=== PATIENT | male | born 1960 | race Caucasian/White ===

== ENCOUNTER → 2020-12-22 12:42 | Outpatient (CLI) | payer SELFPAY ==
[2020-12-25 04:07] LABS: QNTFERON TB Mitogen Value > 10.00 IU/mL (.); QNTFERON TB Nil Value 0.07 IU/mL (.); QNTFERON TB1+ Ag Value 0.06 IU/mL (.); QNTFERON TB2+ Ag Value 0.06 IU/mL (.)
[2020-12-25 13:10] LABS: QNTIFERON TB Positive Criteria Negative (Negative)
== END ==
PROVIDERS: PCP Family Medicine; Referring Provider Dermatology; Visit Provider Dermatology
DX: L40.0 Psoriasis vulgaris (principal); Z79.899 Other long term (current) drug therapy; L82.1 Other seborrheic keratosis
CPT/HCPCS: 36415; 86480